=== PATIENT | female | born 1980 | race Caucasian/White ===

== ENCOUNTER 2016-05-25 21:37 | Emergency (ER) | payer BC, MEDICAID ==
[2016-05-25] MEDS ORDERED: NORMAL SALINE 1,000 ML IV ONE (22:35)
[2016-05-25] MEDS ORDERED: ONDANSETRON HCL/PF 2 MG/ML VIAL IV ONE (22:36)
[2016-05-25] MEDS ORDERED: ONDANSETRON HCL/PF 2 MG/ML VIAL ONE (22:38)
--- NOTE | 2016-05-25 23:33 | ERNOTE ---
Abdominal HPI - General Chief Complaint: Abdominal Pain Time Seen by Provider: 05/25/16 23:18 Source: patient Exam Limitations: no limitations - Immun/Allergies/Home Medications Immunizatons: IMMUNIZATION HX Immunizations Up to Date Yes History of Influenza Vaccine Yes Hx Pneumococcal Vaccination No Allergies/Adverse Reactions: Allergies hydrocodone bitartrate [From Vicodin] Allergy (Verified 12/30/12 20:33) Hives Home Medications: HOME MEDICATIONS Ranitidine HCl [Zantac] 150 mg PO DAILY PRN 12/30/12 [Last Taken Unknown] Cephalexin [Keflex] 500 mg PO TID 05/25/16 [Last Taken Unknown] Folic Acid 0.4 mg PO DAILY 05/25/16 [Last Taken Unknown] Comb No.42/Folic Acid [Prena1 Chew Tablet] 1.4 mg PO DAILY 05/25/16 [ Last Taken Unknown] - History of Present Illness Narrative: Pt states that she began vomiting and having diarrhea about 01:30 this morning. Throughout the day she has had vomiting and diarrhea frequently and has not been able to hold down any food. She has been able to hold down fluids in small amounts. Timing: constant, getting worse Quality: moderate Activities at Onset: sleep Modifying Factors - (Worsens): Present: eating Prior Treatment: Present: recently seen, treated by physician, currently on antibiotics - for sinusitis Review of Systems - Review of Systems Constitutional: Present: recent illness - sinusitis for months EYE: Present: no symptoms reported ENT: Present: nose congestion Respiratory: Present: no symptoms reported Cardiology: Present: no symptoms reported Gastrointestinal/Abdominal: Present: See HPI, eating less, drinking less Genitourinary: Present: decreased urinary output Musculoskeletal: Present: no symptoms reported Skin: Present: no symptoms reported Neurological: Present: no symptoms reported Endocrine: Present: no symptoms reported Hematologic/Lymphatic: Present: no symptoms reported - Patient's Past Medical History Patient History - Medical: No pertinent hx Patient History - Cancer: No Hx of Cancer Patient History - Surgical Procedures: Other - Social History Living Situations: home Smoking Status: Former smoker Have you smoked in the past 12 months: No Do you dip or chew tobacco: No Alcohol Use: none Drug Use: none Physical Exam - Physical Exam General Appearance: Present: wd/wn, alert, no apparent distress Respiratory: Present: no respiratory distress, no accessory muscle use Gastrointestinal/Abdominal: Present: normal bowel sounds, tenderness - diffusely. Absent: guarding, rebound Extremity Exam: Present: normal inspection, non-tender Neurological Exam: Present: alert, oriented, normal mood/affect, no motor/ sensory deficits Skin Exam: Present: normal color, warm/dry Lymphatic Exam: Present: no adenopathy ED Progress - Vital Signs Vital Signs: Vital Signs 05/25/16 21:42 Temperature 36.0 C L Pulse Rate 120 H Respiratory 18 Rate Blood Pressure 150/86 - Progress/Reassessment Chief Complaint: Abdominal Pain Progress Note-Subjective: 05/26/16 02:00 Pt tolerating 7-up without nausea/ vomiting Departure - Departure Clinical Impression: Gastroenteritis Disposition: Home self-care Condition: Good Instructions: Nausea, Adult, Diarrhea, Adult, [id number] Additional Instructions: Clear liquids for the next 24 hours, then begin with the BRAT (bananas, rice, applesauce, toast) diet. Take zofran every 6 hours for the next 24 hours then as needed. Follow up with your regular doctor as needed Referrals: Jorge Luis Washington DO [Primary Care Provider] -
[2016-05-26 02:12] VITALS: BP 126/84
== END 2016-05-26 02:09 | disposition home or self-care (01) ==
LOC: ER 21:37
DX: K52.9 Noninfective gastroenteritis and colitis, unspecified (principal); Z87.891 Personal history of nicotine dependence

== ENCOUNTER 2016-09-26 07:01 | Inpatient (IN) | payer BC ==
--- OUTSIDE RECORDS SUMMARY | 2016-09-26 07:06 | XMS REPORT | Continuity of Care Document ---
:1980 Author Organization [facility] ([facility]) Address [address] [place] [address] Phone [phone] Care Team Providers Name Role Phone Jorge Luis Washington Primary Care Provider Unavailable Source Comments This disclosure is being made pursuant to the Care Everywhere program, applicable federal and state laws, and may not contain all informaitonavailable regarding this patient.[facility] ([facility]) Active Allergies and Adverse Reactions Allergen Noted Date Severity Reactions Comments Hydrocodone-Acetaminophen 09/03/2013 Rash Current Medications Prescription Sig. Disp. Refills Start Date End Date Status folic acid 1 mg tablet Take 4 Tabs by 120 Tab 11 09/03/2013 Active mouth daily. Indications: Repeat Loss ondansetron 4 mg tablet Take 1 Tab by mouth 20 Tab 0 11/13/2013 Active every 8 hours as needed. Indications: nausea Active Problems Problem Noted Date History of recurrent miscarriages, not currently 09/04/2013 Currently Estimated Date of Delivery Comments Yes 10/05/2016 Based on Last Menstrual Period Social History Tobacco Use Types Packs/Day Years Used Date Former Smoker Cigarettes 0.5 5 Quit: 05/19/2003 Smokeless Tobacco: Never Used Alcohol Use Drinks/Week oz/Week Comments Yes 2 Cans of beer occasional use Last Filed Vital Signs Vital Sign Reading Time Taken Blood Pressure 139/71 2016 1:26 PM HEALTH INFORMATION SPECIALIST Pulse 95 2016 1:26 PM HEALTH INFORMATION SPECIALIST Temperature 36.8 C (98.2 F) 2016 1:26 PM HEALTH INFORMATION SPECIALIST Respiratory Rate 18 2016 1:26 PM HEALTH INFORMATION SPECIALIST Height 1.713 m (5' 7.44") 2016 1:26 PM HEALTH INFORMATION SPECIALIST Weight 105.65 kg (232 lb 14.7 oz) 2016 1:26 PM HEALTH INFORMATION SPECIALIST Body Mass Index 36 2016 1:26 PM HEALTH INFORMATION SPECIALIST Oxygen Saturation - - Plan of Care Health Maintenance Due Date Last Done Comments Hepatitis B Vaccine (1 of 3 - Primary Series) 1980 Tdap Vaccine 1992 Lipid Disorder Screening 1999 MMR Vaccine 1999 Td Vaccine 1999 Varicella Vaccine (1 of 2 - Adult - No Evidence of 1999 Immunity) Cervical Cancer Screening 2011 Influenza Vaccine: Seasonal (#1) 12/15/2015 Results from Last 3 Months Not on file
--- OUTSIDE RECORDS SUMMARY | 2016-09-26 08:05 | XMS REPORT | Continuity of Care Document ---
:1980 Author Organization [facility] ([facility]) Address [address] [place] [address] Phone [phone] Care Team Providers Name Role Phone Jorge Luis Washington Primary Care Provider Unavailable Source Comments This disclosure is being made pursuant to the Care Everywhere program, applicable federal and state laws, and may not contain all informaitonavailable regarding this patient.[facility] ([facility]) Active Allergies and Adverse Reactions Allergen [...] Taken Blood Pressure 139/71 2016 1:26 PM DINING ROOM SERVER Pulse 95 2016 1:26 PM DINING ROOM SERVER Temperature 36.8 C (98.2 F) 2016 1:26 PM DINING ROOM SERVER Respiratory Rate 18 2016 1:26 PM DINING ROOM SERVER Height 1.713 m (5' 7.44") 2016 1:26 PM DINING ROOM SERVER Weight 105.65 kg (232 lb 14.7 oz) 2016 1:26 PM DINING ROOM SERVER Body Mass Index 36 2016 1:26 PM DINING ROOM SERVER Oxygen Saturation - - Plan of Care [...]
[2016-09-26] MEDS ORDERED: BUPIVACAINE HCL/0.9 % NACL/PF 250 ML EP PRN (08:51)
[2016-09-26] MEDS ORDERED: ONDANSETRON HCL/PF 2 MG/ML VIAL IV PRN (08:51)
[2016-09-26] MEDS ORDERED: NALOXONE HCL 1 MG/1 ML SYRG IV PRN (08:51)
[2016-09-26] MEDS ORDERED: fentaNYL CITRATE/PF 50 MCG/ML AMPUL IT SCH (09:00)
[2016-09-26] MEDS ORDERED: LIDOCAINE HCL 50 ML VIAL ONE (09:12)
[2016-09-26] MEDS ORDERED: DEXTROSE 5%-LACTATED RINGERS 1,000 ML IV PRN (09:37)
[2016-09-26] MEDS ORDERED: RINGERS SOLUTION,LACTATED 1,000 ML IV ONE (09:37)
[2016-09-26] MEDS ORDERED: LIDOCAINE HCL 50 ML VIAL PERI PRN (09:37)
[2016-09-26] MEDS ORDERED: OXYTOCIN/DEXTROSE 5%-WATER 30 UNITS/500 ML BAG IV ONE ×2 (09:37→11:50)
--- NOTE | 2016-09-26 09:40 | OR ---
Anesthesia Procedure Note - Anesthesia Procedure Note Narrative: Vital Signs - Last Taken Temp 36.3 C L 09/26/16 08:54 Pulse 94 09/26/16 08:54 Resp 20 09/26/16 08:54 BP 139/73 09/26/16 08:54 Pulse Ox 99 09/26/16 08:54 09/26/16 09:39 ANESTHESIA PROCEDURE NOTE Date of Procedure: 09/26/2016 Time of procedure: 01 23. Performed by: Art Rick CRNA [employer] Manager: None. Preprocedure diagnosis: Active labor. Post procedure diagnosis: Same. Procedure: Insertion of labor epidural. Indications: The patient is a 36 -year-old multigravida female in active labor requesting labor epidural for pain management. Findings: See below. Details of the procedure: The patient was placed in a sitting position. Back was prepped with DuraPrep. Patient was then draped in a sterile fashion. Lidocaine 1% was infiltrated to the skin and subcutaneous tissues at the level of the L3 4 interspace. The epidural space was identified using a 18-gauge Tuohy needle with [id number] technique. 20 mcg fentanyl was given intrathecally using a 27 ga. spinal needle. Epidural catheter was inserted without difficulty. Negative test dose was elicited using 5 mL of 1.5% preservative-free lidocaine plus epinephrine 1 200,000. The epidural catheter was then taped and secured in place. EBL: Minimal. Fluids: N/A. Specimen: N/A. Post procedure condition: The patient tolerated the procedure well. No complications were noted. Thank you for this consultation. Dorsey CRNA
--- NOTE | 2016-09-26 10:19 | PN ---
Progess Note - Interim Narrative: 09/26/16 10:17 Patient comfortable with epidural Vital signs stable. FHT: 140 baseline, reassuring Contractions q 2-4 min Cervix: 8/90/-2, AROM-moderate meconium Impression: Intrauterine at 38-5/7 weeks in labor Plan: Notify peds of meconium stained fluid
[2016-09-26] MEDS ORDERED: BISACODYL 10 MG SUPP.RECT RC PRN (11:50)
[2016-09-26] MEDS ORDERED: BENZOCAINE/MENTHOL 81 SPRAY CAN TP PRN (11:50)
[2016-09-26] MEDS ORDERED: SENNOSIDES 8.6 MG TABLET PO PRN (11:50)
[2016-09-26] MEDS ORDERED: HYDROCORTISONE 30 APPL TUBE TP PRN (11:50)
[2016-09-26] MEDS: GLYCERIN/WITCH HAZEL LEAF 40 APPL BOX TP PRN (11:55)
--- NOTE | 2016-09-26 12:13 | OR ---
Operative Report - Dictated Report Narrative: Spontaneous vaginal delivery of viable female at 1119 on 09/26/2016 in RODGER position with Apgars 6 and 8, weighing 4256 g. Tight nuchal cord 1 reduced on perineum. Shoulder dystocia requiring multiple maneuvers to deliver the infant - ultimately delivered with the clockwise rotation and suprapubic pressure from maternal right to left. Episiotomy was not performed since patient already had a second-degree vaginal laceration, delivery of posterior shoulder was attempted but unable to reach either of the 's arms. Time from of head the body was 132 seconds. Moderate meconium-stained fluid noted upon artificial rupture of membranes during first stage of labor. Infant with vigorous crying before 1 minute of . Cord clamping delayed approximately 90 seconds Placenta delivered complete, intact, with three vessel cord. Placental membranes with meconium staining. Estimated blood loss: less than 50 ml Lacerations: 4 cm second degree vaginal laceration repaired with 3-0 Vicryl Rapide with mild crepitus of the left shoulder - possible left clavicular fracture - awaiting pediatric evaluation. Hospital post delivery note-shoulder dystocia form completed.
[2016-09-26] MEDS: IBUPROFEN 800 MG TABLET PO PRN ×2 (13:08→19:25)
[2016-09-26] MEDS: ACETAMINOPHEN WITH CODEINE 1 EACH TABLET PO PRN ×3 (13:18→21:08)
[2016-09-26] MEDS ORDERED: DOCUSATE SODIUM 100 MG CAPSULE PO SCH (21:00)
[2016-09-27] MEDS: ACETAMINOPHEN WITH CODEINE 1 EACH TABLET PO PRN ×2 (01:09→05:09)
[2016-09-27] MEDS: IBUPROFEN 800 MG TABLET PO PRN (01:25)
[2016-09-27 06:50] VITALS: BP 127/73
[2016-09-27] MEDS: GLYCERIN/WITCH HAZEL LEAF 40 APPL BOX TP PRN (08:53)
== END 2016-09-27 09:10 | disposition home or self-care (01) | DRG 775 ==
LOC: OBCLINIC 07:01 → OB 08:01
PROVIDERS: ADMIT Obstetrics & Gynecology; ATTEND Obstetrics & Gynecology
PROC: 10E0XZZ Delivery of Products of Conception, External Approach (ICD-10-PCS; principal; 2016-09-26)
PROC: 0KQM0ZZ Repair Perineum Muscle, Open Approach (ICD-10-PCS; 2016-09-26)
PROC: 10907ZC Drainage of Amniotic Fluid, Therapeutic from Products of Conception, Via Natural or Artificial Opening (ICD-10-PCS; 2016-09-26)
PROC: 4A1HXCZ Monitoring of Products of Conception, Cardiac Rate, External Approach (ICD-10-PCS; 2016-09-26)
PROC: 3E0S3CZ (ICD-10-PCS; 2016-09-26)
DX: O69.1XX0 Labor and delivery complicated by cord around neck, with compression, not applicable or unspecified (principal); O66.0 Obstructed labor due to shoulder dystocia; O77.0 Labor and delivery complicated by meconium in amniotic fluid; O70.1 Second degree perineal laceration during delivery; Z3A.39 39 weeks gestation of pregnancy; Z37.0 Single live birth